=== PATIENT | female | born 1985 | race Caucasian/White ===

== ENCOUNTER 2020-10-09 13:06 | Outpatient (REF) | payer OTHER, SELFPAY ==
[2020-10-09 16:30] LABS: Hematocrit 41.2 % (37-47); Hemoglobin 13.3 g/dl (12.0-16.0); Mean Corpuscular HGB Conc 32.3 g/dl (31.0-35.0); Mean Corpuscular Hemoglobin 28.2 pg (27.0-33.0); Mean Corpuscular Volume 87.3 fL (80-98); Mean Platelet Volume 9.5 fL (9.4-12.3); Platelet Count 390 X10*3/uL (160-400); Red Blood Count 4.72 X10*6/uL (4.20-5.50); Red Cell Distribution Width 13.3 % (11.0-16.0); White Blood Count 8.6 X10*3/uL (4.8-10.8)
[2020-10-09 16:54] LABS: Alanine Aminotransferase 7 U/L (0-31); Albumin Level 4.4 g/dL (3.5-5.0); Alkaline Phosphatase 76 U/L (39-117); Anion Gap 13 (12-20); Aspartate Amino Transferase 14 U/L (5-31); Bilirubin Total 0.4 mg/dL (0.0-1.0); Blood Urea Nitrogen 12 mg/dL (9-16); Carbon Dioxide 30 mmol/L (22-29); Chloride 99 mmol/L (96-108); Cholesterol 180 mg/dL; Estimated Glomerular Filt Rate > 60; Glucose Fasting 80 mg/dL (60-99); HDL Cholesterol 58 mg/dL; LDL Cholesterol Calculated 91 mg/dl; Sodium 138 mmol/L (135-145); Total Protein 7.5 g/dL (6.5-8.0); Triglycerides 158 mg/dL
[2020-10-09 17:14] LABS: TSH reflex Free T4 2.24 mIU/mL (0.32-4.0); Vitamin D 25-OH Total 44.8 ng/mL (>30)
[2020-10-09 17:31] LABS: Folate 11.4 ng/mL (> or = 4.0); Vitamin B12 < 146 pg/mL (200-900)
== END 2020-10-09 13:07 | disposition home or self-care (01) ==
LOC: HO.HMGCLDS 13:06
PROVIDERS: PCP Internal Medicine; Visit Provider Internal Medicine
DX: Z00.00 Encounter for general adult medical examination without abnormal findings (principal); Z20.828 Contact with and (suspected) exposure to other viral communicable diseases
CPT/HCPCS: 36415; 80053; 80061; 82306; 82607; 82746; 84443; 85027; 88142; C9803; U0003

== ENCOUNTER 2021-02-09 16:34 | Outpatient (REF) | payer OTHER, SELFPAY | END 2021-02-09 16:35 | disposition home or self-care (01) | LOC: HO.LNP 16:34 | PROVIDERS: Visit Provider Hospitalist | DX: J01.90 Acute sinusitis, unspecified (principal); Z20.822 Contact with and (suspected) exposure to COVID-19 | CPT/HCPCS: U0003; U0005 ==

== ENCOUNTER 2021-03-12 08:40 | Outpatient (REF) | payer OTHER, SELFPAY ==
--- NOTE | ~2021-03-12 | XR_ITS ---
EXAMINATION: XR CHEST CLINICAL INFORMATION: Essential hypertension COMPARISON: None TECHNIQUE: 2 views of the chest were obtained. FINDINGS: No significant abnormality is noted involving the heart, lungs, mediastinum, bony thorax or soft tissues. XR/XR chest 2V IMPRESSION: No acute disease.
[2021-03-12 11:48] LABS: Hematocrit 42.2 % (37-47); Hemoglobin 13.2 g/dl (12.0-16.0); Mean Corpuscular HGB Conc 31.3 g/dl (31.0-35.0); Mean Corpuscular Hemoglobin 27.7 pg (27.0-33.0); Mean Corpuscular Volume 88.7 fL (80-98); Mean Platelet Volume 9.4 fL (9.4-12.3); Platelet Count 471 X10*3/uL (160-400); Red Blood Count 4.76 X10*6/uL (4.20-5.50); White Blood Count 7.8 X10*3/uL (4.8-10.8)
[2021-03-12 12:00] LABS: Alanine Aminotransferase 7 U/L (0-31); Albumin Level 4.5 g/dL (3.5-5.0); Alkaline Phosphatase 74 U/L (39-117); Anion Gap 15 (12-20); Aspartate Amino Transferase 11 U/L (5-31); Bilirubin Total 0.4 mg/dL (0.0-1.0); Blood Urea Nitrogen 14 mg/dL (9-16); Calcium 9.9 mg/dL (8.4-10.2); Carbon Dioxide 27 mmol/L (22-29); Chloride 102 mmol/L (96-108); Cholesterol 205 mg/dL; Estimated Glomerular Filt Rate > 60; Glucose Fasting 104 mg/dL (60-99); HDL Cholesterol 55 mg/dL; LDL Cholesterol Calculated 119 mg/dl; Potassium 4.1 mmol/L (3.3-5.1); Sodium 140 mmol/L (135-145); Total Protein 7.6 g/dL (6.5-8.0); Triglycerides 156 mg/dL
[2021-03-12 12:21] LABS: TSH reflex Free T4 2.59 uIU/mL (0.32-4.0); Vitamin D 25-OH Total 36.2 ng/mL (>30)
[2021-03-12 13:50] LABS: Folate 9.1 ng/mL (> or = 4.0); Vitamin B12 147 pg/mL (200-900)
== END 2021-03-12 08:41 | disposition home or self-care (01) ==
LOC: HO.HMGCX 08:40
PROVIDERS: PCP Internal Medicine; Visit Provider Internal Medicine
DX: I10 Essential (primary) hypertension (principal); J01.90 Acute sinusitis, unspecified; J45.909 Unspecified asthma, uncomplicated; E53.8 Deficiency of other specified B group vitamins
CPT/HCPCS: 36415; 71046; 80053; 80061; 82306; 82607; 82746; 84443; 85027

== ENCOUNTER 2021-03-26 10:26 | Outpatient (REF) | payer OTHER, SELFPAY ==
--- NOTE | ~2021-03-26 | US_ITS ---
EXAMINATION: US ABDOMEN COMPLETE CLINICAL INFORMATION: Unspecified abdominal pain. COMPARISON: CT abdomen without intravenous contrast dated 01/31/2008 TECHNIQUE: Real-time imaging of the abdominal viscera. FINDINGS: PANCREAS: Normal. ABDOMINAL AORTA: The proximal, mid, and distal segments are normal in caliber. INFERIOR VENA CAVA: Visualized portions are normal. LIVER: Normal. The liver is normal in size. The liver contour is normal. Parenchymal echogenicity is normal. No focal hepatic lesion. There is no intrahepatic biliary duct dilatation seen. GALLBLADDER: Normal. The gallbladder is physiologically distended without evidence of stones, sludge, polyps, wall thickening or pericholecystic fluid. COMMON BILE DUCT: Normal in caliber measuring 0.43 cm in diameter. RIGHT KIDNEY: Right midpole stone measuring 0.4 cm. No hydronephrosis or focal parenchymal lesions. The kidney measures 11.0 cm in maximum dimension. LEFT KIDNEY: Left midpole stone measuring 0.2 cm. No hydronephrosis or focal parenchymal lesions. The kidney measures 12.0 cm in maximum dimension. SPLEEN: Normal. The spleen measures 11.3 cm in maximum dimension. FREE FLUID: None. US/US abdomen complete IMPRESSION: Bilateral renal stones measuring 0.4 cm on the right and 0.2 cm on the left. No hydronephrosis. Otherwise unremarkable examination.
== END 2021-03-26 10:27 | disposition home or self-care (01) ==
LOC: HO.HMGCX 10:26
PROVIDERS: PCP Internal Medicine; Visit Provider Internal Medicine
DX: R10.9 Unspecified abdominal pain (principal)
CPT/HCPCS: 76700

== ENCOUNTER 2023-08-24 09:32 | Outpatient (REF) | payer OTHER, SELFPAY ==
[2023-08-24 11:09] LABS: MANUAL DIFF FLAG NO
[2023-08-24 11:29] LABS: Basophils Absolute Auto 0.1 X10*3/uL (0.0-0.2); Basophils Percent Auto 0.7 % (0-2); Eosinophils Absolute Auto 0.1 X10*3/uL (0.0-0.4); Eosinophils Percent Auto 1.4 % (0-4); Hemoglobin 13.4 g/dl (12.0-16.0); Imm Gran Abs Auto 0.02 X10*3/uL (0.00-0.03); Imm Gran Pct Auto 0.2 % (0.0-0.4); Lymphocytes Absolute Auto 2.6 X10*3/uL (1.2-4.9); Lymphocytes Percent Auto 30.3 % (20-40); Mean Corpuscular HGB Conc 31.9 g/dl (31.0-35.0); Mean Corpuscular Hemoglobin 28.9 pg (27.0-33.0); Mean Corpuscular Volume 90.7 fL (80.0-98.0); Mean Platelet Volume 9.5 fL (9.4-12.3); Monocytes Absolute Auto 0.5 X10*3/uL (0.1-1.2); Monocytes Percent Auto 5.7 % (2-11); Neutrophils Absolute Auto 5.2 x10*3/uL (2.0-8.3); Neutrophils Percent Auto 61.7 % (45-73); Platelet Count 412 X10*3/uL (160-400); Red Blood Count 4.63 X10*6/uL (4.20-5.50); Red Cell Distribution Width 12.9 % (11.0-16.0); White Blood Count 8.5 X10*3/uL (4.8-10.8)
[2023-08-24 11:57] LABS: Alanine Aminotransferase 10 U/L (0-31); Albumin Level 4.3 g/dL (3.5-5.0); Alkaline Phosphatase 59 U/L (39-117); Anion Gap 15 (12-20); Aspartate Amino Transferase 14 U/L (5-31); Bilirubin Total 0.4 mg/dL (0.0-1.0); Blood Urea Nitrogen 15 mg/dL (9-16); Calcium 9.3 mg/dL (8.4-10.2); Carbon Dioxide 26 mmol/L (22-29); Chloride 103 mmol/L (96-108); Cholesterol 190 mg/dL (<200); Estimated Glomerular Filt Rate > 60; Glucose Fasting 88 mg/dL (60-99); HDL Cholesterol 59 mg/dL (>40); LDL Cholesterol Calculated 115 mg/dL (<100); Potassium 3.9 mmol/L (3.3-5.1); Sodium 140 mmol/L (135-145); Total Protein 7.6 g/dL (6.5-8.0); Triglycerides 80 mg/dL (<150)
[2023-08-24 12:12] LABS: TSH reflex Free T4 1.72 uIU/mL (0.32-4.0)
[2023-08-24 12:25] LABS: Folate > 20.0 ng/mL (> or = 4.0); Vitamin B12 363 pg/mL (200-900)
== END 2023-08-24 09:33 | disposition home or self-care (01) ==
LOC: HO.HMGCLDS 09:32
PROVIDERS: PCP Internal Medicine; Visit Provider Internal Medicine
DX: Z00.00 Encounter for general adult medical examination without abnormal findings (principal); E53.8 Deficiency of other specified B group vitamins; I10 Essential (primary) hypertension
CPT/HCPCS: 36415; 80053; 80061; 82607; 82746; 84443; 85025

== ENCOUNTER 2023-09-12 13:16 | Outpatient (AMB) | payer OTHER, SELFPAY ==
[2023-09-12 13:19] VITALS: BP 132/80; PULSE 76; O2SAT 99; BMI 25.3
--- NOTE | 2023-09-12 13:19 | A.OFFPC_ITS ---
Vital Signs 09/12/23 13:19 Height 5 ft 1.75 in Weight 137 lb BMI 25.3 BP 132/80 Blood Pressure Location Lt brachial Position Sitting Pulse 76 Pulse Source Pulse Oximeter Pulse Oximetry (%) 99 Oxygen Delivery Method Room Air Intake Visit Reasons: PE Intake Note: Pt is here today for PE. Allergies methocarbamol [From Robaxin] Allergy (Unknown, Verified 09/12/23 13:20) Hives Medication List - Last Reconciled 09/12/23 by Nahed Galicia MD albuterol sulfate 90 mcg/actuation 2 puffs inhalation Q4-6H PRN cyanocobalamin (vitamin B-12) 1,000 mcg PO DAILY fluticasone propionate 50 mcg/actuation inhalation fluticasone propionate 110 mcg/actuation (Flovent HFA) 1 puff PO BID lisinopril 10 mg PO DAILY lorazepam 0.5 mg PO BEDTIME PRN norgestimate-ethinyl estradiol 0.18/0.215/0.25 mg-25 mcg 1 tab PO DAILY triamcinolone acetonide 0.1% 1 appl topical BID Tobacco use date assessed: 09/12/23 Dental Screening Dental Screen Date: 09/12/23 Did you have a dental visit in the last 12 months?: Yes Did you have a dental problem in the last 6 months where you did not have access to dental care?: No Was dental information given to patient?: Patient has dentist HPI PE HPI Details Pt presents for PE. PFSH Medical History Anxiety and depression Seasonal allergies Anxiety Abdominal pain Vitamin B 12 deficiency Annual physical exam Nephrolithiasis Eczema PTSD (post-traumatic stress disorder) Migraines Asthma Heart murmur Surgical History History of breast augmentation Family History Father Heart murmur Substance use disorder Mother Crohn's disease Fibromyalgia Diabetes mellitus Multiple sclerosis Mental health disorder Son No problems noted. Daughter No problems noted. 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 1. Little interest or pleasure in doing things: more than half the days 2. Feeling down, depressed, or hopeless: more than half the days 3. Trouble falling or staying asleep, or sleeping too much: nearly every day 4. Feeling tired or having little energy: nearly every day 5. Poor appetite or overeating: more than half the days 6. Feeling bad about yourself - or that you are a failure or have let yourself or your family down: nearly every day 7. Trouble concentrating on things, such as reading the newspaper or watching television: more than half the days 8. Moving or speaking so slowly that other people could have noticed. Or the opposite - being so fidgety or restless that you have been moving around a lot more than usual: nearly every day 9. Thoughts that you would be better off or of hurting yourself in some way: several days Total score: 21 Depression Screening Interpretation: Positive Depression Screening Done: Yes Source: Developed by Drs. Michael Morton, Gwendolyn العلي, Emanuel Ochoa and colleagues, with an educational andrez from [employer]. Thrive Questionnaire Date Thrive assessed: 09/12/23 I am a: Patient What is your living situation today?: I have a place to live, but I am worried about losing it in the future Within the past 12 months, did the food you bought not last and you didn't have the money to get more?: Sometimes True Within the past 12 months, did you worry whether your food would run out before you got money to buy more?: Often true Do you have trouble paying for medicines?: No Do you have trouble getting transportation to medical appointments?: No Do you have trouble paying your heating and electricity bill?: Yes Do you have trouble taking care of your child, family member or friend?: No Do you have trouble with day-to-day activities such as bathing, preparing meals, shopping, managing finances, etc.?: Yes Are you currently unemployed and looking for a job?: No Are you interested in more education?: Yes AMILCAR-7 AMB Questionnaire AMILCAR-7 Date AMILCAR - 7 assessed: 09/12/23 Feeling nervous, anxious, or on edge: 3 = Nearly every day Not being able to stop or control worryin = Nearly every day Worrying too much about different things: 3 = Nearly every day Trouble relaxin = More than half the days Being so restless that it is hard to sit still: 3 = Nearly every day Becoming easily annoyed or irritable: 2 = More than half the days Feeling afraid as if something awful might happen: 3 = Nearly every day Total AMILCAR-7 score (0-4 normal; 5-9 mild; 10-14 moderate; 15-21 severe): 19 Source: Developed by Drs. Michael Morton, Gwendolyn العلي, Emanuel Ochoa and colleagues, with an educational andrez from [employer]. Review of Systems Const All systems reviewed & are unremarkable except as noted in HPI and below Eyes Reports no additional complaints ENT Reports no additional complaints Card Reports no additional complaints Resp Reports no additional complaints GI Reports no additional complaints Reports no additional complaints Musc Reports no additional complaints Physical exam (Primary Care) Vital Signs: Last Vital Signs Pulse 76 09/12/23 13:19 BP 132/80 09/12/23 13:19 Pulse Ox 99 09/12/23 13:19 Oxygen Delivery Method Room Air 09/12/23 13:19 BMI result Body Mass Index 25.3 Tobacco/Smoking Status: Tobacco use Status Tobacco use date assessed 09/12/23 09/12/23 13:26 Patient Tobacco Use Status Never used Tobacco 09/12/23 13:26 e-Cigarette/Vaping Use Never Used 09/12/23 13:26 PHQ-9: PHQ-9 Score PHQ-9: Total score 21 09/12/23 14:36 Depression Screening Interpretation: Positive Thrive Assessment: Date of Thrive Assessment Date Thrive assessed 09/12/23 09/12/23 14:36 Const General: no acute distress HENMT Head: Yes normal to inspection Face and sinus: Yes normal facial exam Mouth: Normal oral and palatal mucosa present Throat: Yes posterior oropharynx normal Eyes General: appearance normal, both eyes and all related structures Neck Neck: Yes no lymphadenopathy and Yes supple Resp Effort & Inspection: normal respiratory effort Auscultation: clear to auscultation bilaterally Cardio Rhythm: regular rhythm Heart sounds: S1 normal heart sound present and S2 normal heart sound present GI Inspection: Yes normal to inspection Palpation (GI): Soft to palpation Percussion: Yes normal to percussion Auscultation: normal bowel sounds External Female Exam: normal external appearance Speculum Exam - Vagina: normal appearance of the vagina Speculum Exam - Cervix: normal appearance of the cervix Bimanual exam- vagina & uterus: normal bimanual exam Assessment and Plan Assessment & Plan (1) Anxiety and depression: Comment: Patient declined medications and counseling Code(s): F41.9 - Anxiety disorder, unspecified; F32.9 - Major depressive disorder, single episode, unspecified Plan: Patient declined referral for counseling or psychiatrist. She is self managing her anxiety and depression with regular exercise and meditations (2) Asthma: Code(s): J45.909 - Unspecified asthma, uncomplicated Plan: Patient was advised to restart Flovent twice a day and use albuterol as needed only. Return in 4 months (3) HTN (hypertension): Code(s): I10 - Essential (primary) hypertension Qualifiers: Hypertension type: essential hypertension Qualified Code(s): I10 - Essential (primary) hypertension Plan: Continue lisinopril (4) Annual physical exam: Code(s): Z00.00 - Encounter for general adult medical examination without abnormal findings Plan: Well-balanced diet and regular physical activity discussed with the patient. Pap smear was done today (5) Vitamin B 12 deficiency: Code(s): E53.8 - Deficiency of other specified B group vitamins Plan: Continue B12 supplement Orders: Orders Pap Smear Today Z00.00 - Encounter for general adult medical examination without abnormal findings Coding Level of Care Code Est Pt Prev Care 18-39y(06325) Diagnoses Anxiety and depression F41.9; F32.9 Asthma J45.909 Essential hypertension I10 Hypertension type: essential hypertension Annual physical exam Z00.00 Vitamin B 12 deficiency E53.8
== END 2023-09-12 14:49 | disposition home or self-care (01) ==
PROVIDERS: PCP Internal Medicine; Visit Provider Internal Medicine
DX: Z00.00 Encounter for general adult medical examination without abnormal findings (principal); F41.9 Anxiety disorder, unspecified; J45.909 Unspecified asthma, uncomplicated; I10 Essential (primary) hypertension; F32.9 Major depressive disorder, single episode, unspecified; E53.8 Deficiency of other specified B group vitamins
CPT/HCPCS: 99395

== ENCOUNTER 2023-09-12 14:57 | Outpatient (REF) | payer OTHER, SELFPAY ==
[2023-09-15 20:34] LABS: HPV mRNA E6/E7 Not Detected (Not Detected)
== END 2023-09-12 14:58 | disposition home or self-care (01) ==
LOC: HO.LNP 14:57
PROVIDERS: Visit Provider Internal Medicine
DX: Z12.4 Encounter for screening for malignant neoplasm of cervix (principal); Z11.51 Encounter for screening for human papillomavirus (HPV)
CPT/HCPCS: 87624; 88142

== ENCOUNTER 2024-01-18 12:59 | Outpatient (REF) | payer OTHER, SELFPAY ==
[2024-01-18 16:27] LABS: MANUAL DIFF FLAG NO
[2024-01-18 16:29] LABS: Basophils Absolute Auto 0.1 X10*3/uL (0.0-0.2); Basophils Percent Auto 0.8 % (0-2); Eosinophils Absolute Auto 0.1 X10*3/uL (0.0-0.4); Eosinophils Percent Auto 1.6 % (0-4); Hematocrit 39.1 % (37.0-47.0); Hemoglobin 12.8 g/dl (12.0-16.0); Imm Gran Abs Auto 0.02 X10*3/uL (0.00-0.03); Imm Gran Pct Auto 0.3 % (0.0-0.4); Lymphocytes Absolute Auto 2.2 X10*3/uL (1.2-4.9); Lymphocytes Percent Auto 30.3 % (20-40); Mean Corpuscular HGB Conc 32.7 g/dl (31.0-35.0); Mean Corpuscular Volume 88.7 fL (80.0-98.0); Mean Platelet Volume 9.5 fL (9.4-12.3); Monocytes Absolute Auto 0.5 X10*3/uL (0.1-1.2); Monocytes Percent Auto 6.5 % (2-11); Neutrophils Absolute Auto 4.4 x10*3/uL (2.0-8.3); Neutrophils Percent Auto 60.5 % (45-73); Platelet Count 404 X10*3/uL (160-400); Red Blood Count 4.41 X10*6/uL (4.20-5.50); Red Cell Distribution Width 12.7 % (11.0-16.0); White Blood Count 7.3 X10*3/uL (4.8-10.8)
[2024-01-18 16:53] LABS: Appearance Urine Clear; Color Urine Yellow; Glucose Urine UA Negative (Negative); Leukocyte Esterase Urine Negative (Negative); Nitrite Urine Negative (Negative); Specific Gravity - Urine <= 1.005 (1.005-1.025); Urine Blood Negative (Negative); Urine Ketones Negative (Negative); Urine Protein Negative (Neg-Trace)
[2024-01-18 16:55] LABS: Alanine Aminotransferase 16 U/L (0-31); Albumin Level 4.1 g/dL (3.5-5.0); Alkaline Phosphatase 63 U/L (39-117); Anion Gap 10 (12-20); Aspartate Amino Transferase 15 U/L (5-31); Bilirubin Total 0.4 mg/dL (0.0-1.0); Blood Urea Nitrogen 11 mg/dL (9-16); Calcium 9.4 mg/dL (8.4-10.2); Carbon Dioxide 28 mmol/L (22-29); Chloride 105 mmol/L (96-108); Cholesterol 163 mg/dL (<200); Estimated Glomerular Filt Rate > 60; Glucose Fasting 88 mg/dL (60-99); HDL Cholesterol 46 mg/dL (>40); LDL Cholesterol Calculated 66 mg/dL (<100); Sodium 139 mmol/L (135-145); Total Protein 7.2 g/dL (6.5-8.0); Triglycerides 255 mg/dL (<150)
[2024-01-18 16:56] LABS: Bacteria Urine None Seen (None Seen); Hyaline Casts Urine 0-2 /LPF (0-2); RBC Urine 0-2 /HPF (0-2); Squamous Epithelial Cell Urine 0-2 /HPF (0-2); WBC Urine 0-5 /HPF (0-5)
[2024-01-18 17:13] LABS: Folate > 20.0 ng/mL (> or = 4.0); Vitamin B12 572 pg/mL (200-900)
[2024-01-18 18:08] LABS: TSH reflex Free T4 1.12 uIU/mL (0.32-4.0)
== END 2024-01-18 13:00 | disposition home or self-care (01) ==
LOC: HO.HMGCLDS 12:59
PROVIDERS: PCP Internal Medicine; Visit Provider Internal Medicine
DX: Z00.00 Encounter for general adult medical examination without abnormal findings (principal); E53.8 Deficiency of other specified B group vitamins; I10 Essential (primary) hypertension
CPT/HCPCS: 36415; 80053; 80061; 81001; 82607; 82746; 84443; 85025

== ENCOUNTER 2024-10-10 09:50 | Outpatient (AMB) | payer OTHER, SELFPAY ==
--- NOTE | 2024-10-10 09:57 | MHC.PC.OV ---
Vital Signs 10/10/24 09:59 Height 5 ft 1 in Weight 133 lb BMI 25.1 BP 140/90 H Blood Pressure Location Lt brachial Position Sitting Pulse 81 Pulse Source Pulse Oximeter Pulse Oximetry (%) 98 Oxygen Delivery Method Room Air Intake Visit Reasons: Post COVID symptoms, mental health concerns Allergies methocarbamol [From Robaxin] Allergy (Unknown, Verified 10/10/24 10:00) Hives Medication List - Last Reconciled 10/10/24 by Nahed Galicia MD albuterol sulfate 90 mcg/actuation 2 puffs inhalation Q4-6H PRN cyanocobalamin (vitamin B-12) 1,000 mcg PO DAILY escitalopram oxalate (Lexapro) 10 mg PO DAILY fluticasone propionate 110 mcg/actuation (Flovent HFA) 1 puff PO BID lisinopril 10 mg PO DAILY mometasone 100 mcg/actuation (Asmanex HFA) 2 puffs inhalation BID norgestimate-ethinyl estradiol 0.18/0.215/0.25 mg-25 mcg (Aqs-Ey-Vpnebn) 1 tab PO DAILY triamcinolone acetonide 0.1% 1 appl topical BID Tobacco use date assessed: 10/10/24 Dental Screening Dental Screen Date: 10/10/24 Did you have a dental visit in the last 12 months?: Yes Did you have a dental problem in the last 6 months where you did not have access to dental care?: Yes Was dental information given to patient?: Patient has dentist HPI Post COVID symptoms, mental health concerns HPI Details Pt presents for f/u anxiety, panic attacks, depression getting worse over the last few weeks. Patient got in August and her lives in [place] and she is planning to move permanently to [place]. Patient has been under lot of stress related to her grandparents and her mother health traveling back and forth to [place]. She used to see a counselor but not recently. Patient reports insomnia but denies change in appetite or suicide ideation. She had tried multiple SSRIs in the past but not Lexapro. Asthma has been controlled on Asmanex and patient continues to take lisinopril for hypertension. [facility] Medical History (Updated 10/10/24 @ 14:52 by Nahed Galicia MD) Anxiety and depression Seasonal allergies Anxiety Abdominal pain Vitamin B 12 deficiency Annual physical exam Nephrolithiasis Eczema PTSD (post-traumatic stress disorder) Migraines Asthma Heart murmur Surgical History History of breast augmentation Family History Father Heart murmur Substance use disorder Mother Crohn's disease Fibromyalgia Diabetes mellitus Multiple sclerosis Mental health disorder Son No problems noted. Daughter No problems noted. Brother Mental health disorder Social History Household Members Other:: single, helps mother with [place] in [place] Housing: House Alcohol intake: current Alcohol intake frequency: a few times a month Patient Tobacco Use Status: Never used Tobacco e-Cigarette/Vaping Use: Never Used Current occupational status: employed Cognitive needs: No Hearing needs: No Vision needs: Yes Questionnaire PHQ-9 Over the last 2 weeks, how often have you been bothered by any of the following problems? 1. Little interest or pleasure in doing things: nearly every day 2. Feeling down, depressed, or hopeless: more than half the days 3. Trouble falling or staying asleep, or sleeping too much: more than half the days 4. Feeling tired or having little energy: nearly every day 5. Poor appetite or overeating: nearly every day 6. Feeling bad about yourself - or that you are a failure or have let yourself or your family down: nearly every day 7. Trouble concentrating on things, such as reading the newspaper or watching television: several days 8. Moving or speaking so slowly that other people could have noticed. Or the opposite - being so fidgety or restless that you have been moving around a lot more than usual: more than half the days 9. Thoughts that you would be better off or of hurting yourself in some way: several days Total score: 20 Depression Screening Interpretation: Positive (Lexapro will be started the patient will schedule appointment with counselor) Depression Screening Follow-up: Existing condition, In treatment and New Medication prescribed Depression Screening Done: Yes 70566 - PHQ-9 Billing: Yes Source: Developed by Drs. Michael Morton, Gwendolyn العلي, Emanuel Ochoa and colleagues, with an educational andrez from [employer]. Thrive Questionnaire Date Thrive assessed: 10/10/24 I am a: Patient What is your living situation today?: I have a place to live, but I am worried about losing it in the future Within the past 12 months, did the food you bought not last and you didn't have the money to get more?: Often true Within the past 12 months, did you worry whether your food would run out before you got money to buy more?: Sometimes True Do you have trouble paying for medicines?: Yes Do you have trouble getting transportation to medical appointments?: I choose not to answer this question Do you have trouble paying your heating and electricity bill?: Yes Do you have trouble taking care of your child, family member or friend?: Yes Do you have trouble with day-to-day activities such as bathing, preparing meals, shopping, managing finances, etc.?: Yes Are you currently unemployed and looking for a job?: No Are you interested in more education?: Yes Please select the resources that you would like help with: Food, Paying for medicine and Utilities Currently or been in a relationship where the following occur: I choose not to answer THRIVE Score: 4 AUDIT C Alcohol Use Questionnaire (AUDIT-C) 1. How often do you have a drink containing alcohol?: 2-3 times a week 2. How many drinks containing alcohol do you have on a typical day when you are drinking?: 1 or 2 3. How often do you have six or more drinks on one occasion?: Monthly Total Score: 5 Score Reviewed/Action Taken: Yes AMILCAR-7 AMB Questionnaire AMILCAR-7 Date AMILCAR - 7 assessed: 10/10/24 Feeling nervous, anxious, or on edge: 3 = Nearly every day Not being able to stop or control worryin = Nearly every day Worrying too much about different things: 3 = Nearly every day Trouble relaxin = Nearly every day Being so restless that it is hard to sit still: 3 = Nearly every day Becoming easily annoyed or irritable: 3 = Nearly every day Feeling afraid as if something awful might happen: 3 = Nearly every day Total AMILCAR-7 score (0-4 normal; 5-9 mild; 10-14 moderate; 15-21 severe): 21 Source: Developed by Drs. Michael Morton, Gwendolyn Emanuel Daniels and colleagues, with an educational andrez from [employer]. AMILCAR-7 Assessment Billing AMILCAR-7 Assessment Tool: AMILCAR-7 Assessment 99929 Review of Systems Const All systems reviewed & are unremarkable except as noted in HPI and below Eyes Reports no additional complaints ENT Reports no additional complaints Card Reports no additional complaints Resp Reports no additional complaints GI Reports no additional complaints Reports no additional complaints Musc Reports no additional complaints Physical exam (Primary Care) Vital Signs: Last Vital Signs Pulse 81 10/10/24 09:59 BP 140/90 H 10/10/24 09:59 Pulse Ox 98 10/10/24 09:59 Oxygen Delivery Method Room Air 10/10/24 09:59 BMI result Body Mass Index 25.1 Tobacco/Smoking Status: Tobacco use Status Tobacco use date assessed 10/10/24 10/10/24 09:59 Patient Tobacco Use Status Never used Tobacco 10/10/24 09:59 e-Cigarette/Vaping Use Never Used 10/10/24 09:59 PHQ-9: PHQ-9 Score PHQ-9: Total score 20 10/10/24 10:23 Depression Screening Interpretation: Positive (Lexapro will be started the patient will schedule appointment with counselor) Depression Screening Follow-up: Existing condition, In treatment and New Medication prescribed Thrive Assessment: Date of Thrive Assessment Date Thrive assessed 10/10/24 10/10/24 09:59 Currently or been in a relationship where the following occur: I choose not to answer HENMT Head: Yes normal to inspection Throat: Yes posterior oropharynx normal Neck Neck: Yes supple Resp Effort & Inspection: normal respiratory effort Auscultation: clear to auscultation bilaterally Cardio Rhythm: regular rhythm Heart sounds: S1 normal heart sound present and S2 normal heart sound present GI Inspection: Yes normal to inspection Palpation (GI): Soft to palpation Percussion: Yes normal to percussion Coding Level of Care Code Est Pt Level 4 (34059) Diagnoses Anxiety and depression F41.9; F32.9 Asthma J45.909 Essential hypertension I10 Hypertension type: essential hypertension Additional Codes AMILCAR-7 Assessment Billing - AMILCAR-7 Assessment Tool: AMILCAR-7 Assessment 99106 ([id number]) PHQ-9 - 40112 - PHQ-9 Billing: Yes ([id number]) Assessment & Plan Assessment & Plan (1) Anxiety and depression: Comment: For many years, side effects from multiple SSRI, established with a counselor Code(s): F41.9 - Anxiety disorder, unspecified; F32.9 - Major depressive disorder, single episode, unspecified Category: Medical Plan: Stress management discussed with the patient. Lexapro 10 mg will be started. Follow-up in 6 weeks to 2 months. Patient will schedule an appointment with a counselor (2) Asthma: Code(s): J45.909 - Unspecified asthma, uncomplicated Category: Medical Plan: Controlled on Asmanex (3) HTN (hypertension): Code(s): I10 - Essential (primary) hypertension Category: Medical Qualifiers: Hypertension type: essential hypertension Qualified Code(s): I10 - Essential (primary) hypertension Plan: Increase lisinopril to 20 mg a day, follow-up in 2 months Medications: New escitalopram oxalate (Lexapro) 10 mg PO DAILY 90 tabs 1RF Changed From lisinopril 10 mg PO DAILY 90 tabs 3RF To lisinopril 10 mg PO BID 180 tabs 3RF Refilled lisinopril 10 mg PO DAILY 90 tabs 3RF norgestimate-ethinyl estradiol 0.18/0.215/0.25 mg-25 mcg (Ujy-Tq-Xesliy) 1 tab PO DAILY 84 tabs 2RF Z30.9 - Encounter for contraceptive management, unspecified
[2024-10-10 09:59] VITALS: BP 140/90; PULSE 81; O2SAT 98; BMI 25.1
--- OUTSIDE RECORDS SUMMARY | 2024-10-16 17:19 | XMS_ITS | Continuity of Care Document ---
Author Organization [facility] er Address [address] [place] [address] Phone Care Team Providers Care Key Account Director Name Role Phone Dejuan OWEN Nate Unavailable Unavailable Allergies, Adverse Reactions, Alerts Substance Reaction Status Criticality methocarbamol HivesHives Active No Information coconut HivesHivesthroat swelling Active No Information Procedures Procedure Date Intraoral - Periapical First Film Bitewing - Single Radiographic Image Aug Limited Oral Evaluation - Problem Focuse d Advance Directives Directive Yes / No Effective Date File Name Other Directive No N/A N/A WARNING:The information contained in this section is historical and is provided for information only and does not constitute a legal document or any assurance that the information is still accurate. Please verify the information with the jc of the legal document before using it for clinical purposes. Encounters Encounter Description Practice Location Reason(s) For Visit Diagnoses Date Provider Providers Copied on Encounter [facility], [address] [place] [address], [id number], tel:[phone] [place] No Information Katiezahida [facility]. [address] [place], [address], [place]. tel:[phone] [facility], [address] [place] [address], [place], [id number], [place] tel:[phone] [facility] Encounter for dental exam and cleaning w abnormal findings Dejuan [facility]. [address] [place], [address], [place]. tel:[phone] Referring Provider: Nate Zaidi, [address] [place], [address]. tel:[phone] Family History Family Member Type Diagnosis Age At Onset Father Problem Hypertension Paternal grandfather Problem Diabetes mellitus Mother Problem unspecified Paternal grandfather Problem Hypertension Paternal grandmother Problem Diabetes mellitus Paternal grandmother Problem Hypertension Mother Problem Diabetes mellitus Brother Problem Hypertension Payers Payer name Insurance type Covered green party ID Izzy edwards(sDallas [facility] 17 [id number] Social History Type Description Quantity Date Captured Comments Alcohol Use Details Caffeine Use Details 1-2 cups per day Tobacco Use Status No Information Smoking Status Former smoker Non-Smoking Tobacco Use Details : No Details Available : No Details Available Sex Female Sexual Orientation Straight or heterosexual Gender Identity Female Chief Complaint And Reason For Visit No Information Reason For Referral Reason For Referral No Information Plan Of Treatment Date Type Action Status Goal PRAPARE. Due on due Goal H & P. Due on du e Goal Depression screening. Due on due Goal Pap/HPV testing. Due on due Goal Pre-Diabetes Screening. Due on due Goal Td vaccine. Due on due Goal Hepatitis C screening. Due o n due Goal Influenza vaccine. Due on due Goal Tdap. Due on due History Of Present Illness Encounter Date Complaint History Of Prese nt Illness No Information Functional Status Date Functional Assessmen t No Information Instructions Date Instruction Additional Infor mation No Information Assessments Type Assessment Date No Information Patient Care Teams Name Effective Dates (start - stop) Status Members No Information
== END 2024-10-10 10:49 | disposition home or self-care (01) ==
PROVIDERS: PCP Internal Medicine; Visit Provider Internal Medicine
DX: F41.9 Anxiety disorder, unspecified (principal); F32.9 Major depressive disorder, single episode, unspecified; J45.909 Unspecified asthma, uncomplicated; I10 Essential (primary) hypertension

== ENCOUNTER → 2024-10-10 09:50 | Outpatient (BNVA) | payer OTHER, SELFPAY | PROVIDERS: PCP Internal Medicine; Visit Provider Internal Medicine | DX: F41.9 Anxiety disorder, unspecified (principal); F32.9 Major depressive disorder, single episode, unspecified; J45.909 Unspecified asthma, uncomplicated; I10 Essential (primary) hypertension | CPT/HCPCS: 96127; 99212 ==

== ENCOUNTER 2025-01-07 12:43 | Outpatient (AMB) | payer OTHER, SELFPAY ==
[2025-01-07 12:51] VITALS: PULSE 76; RESP 20; TEMP 37.1; O2SAT 96; BMI 24.0
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
--- OUTSIDE RECORDS SUMMARY | 2025-01-07 14:49 | XMS_ITS | Clinical Summary ---
Author Organization [facility] [employer] Address [address] [place] [address] Care Team Providers Care Outlet Manager Name Role Phone Pcp, No Primary Care Provider Social History Tobacco Use Types Packs/Day Years Used Date Smoking Tobacco: Never Assessed Comments Unknown Sex and Gender Information Value Date Recorded Sex Assigned at Not on file Legal Sex Female 9:55 AM EST Gender Identity Not on file Sexual Orientation Not on file Plan of Treatment Health Maintenance Due Date Last Done Comments Depression: Screening Annual ly using PHQ-2/9 in Adults 18 yrs or above (or HM Modifier)([facility]) 2005 Hepatitis C Virus Infection in Adolescents and Adults: Screening (or Modifier) ([facility]) 2005 SDWY Screening Reminder: Sera ortega for all adults ([facility]) 2005 Tobacco Smoking Cessation: i n Adults excluding Women: Behavioral and Pharmacotherapy Interventions ([facility]) 2005 DTaP/Tdap/Td Vaccines ([facility]) (1 - Tdap) 2006 Lipid Screening: Once for Wo men aged 20 to 45 yrs ([facility]) 2007 Cervical Cancer Screenin 1-65 yrs of age (or Modifier) 2008 Cervical Cancer Screening: P ap every 3 yrs pts age 21-65 2008 Cervical Cancer: Pap Screeni ng with Modifier timing ([facility]) 2008 Cervical Cancer: hrHPV alone or with cotesting Pap for Pts 30-65yrs screening every 5yrs ([facility]) 2008 Flu Vaccination: Yearly for ages 18mos through 64 years (or Modifier)([facility]) 06/07/2024 COVID-19 Vaccine Screening: Initial Series and Booster Status ([facility]) (2023- season) 2024 Zoster/Shingles Vaccine Seri es Screening: Adults aged 18+ yrs (or HM Modifiers)([facility]) (1 of 2) 2037 Pneumococcal Vaccination Scr eening: Pts 0-19 & 19-64 yrs of age ([facility]) Aged Out No longer eligible based on patient's age to complete this topic Medical Devices Not on file Insurance [facility] Care Teams Outlet Manager Relationship Specialty Start Date End Date Pcp, Zita PCP - General Family Medicine 12/04/20
== END 2025-01-07 13:51 | disposition home or self-care (01) ==
PROVIDERS: PCP Internal Medicine; Visit Provider Internal Medicine
DX: I10 Essential (primary) hypertension (principal); F41.9 Anxiety disorder, unspecified; F32.9 Major depressive disorder, single episode, unspecified

== ENCOUNTER → 2025-01-07 12:43 | Outpatient (BNVA) | payer OTHER, SELFPAY | PROVIDERS: PCP Internal Medicine; Visit Provider Internal Medicine | DX: I10 Essential (primary) hypertension (principal); F41.9 Anxiety disorder, unspecified; F32.9 Major depressive disorder, single episode, unspecified | CPT/HCPCS: 96127; 99212 ==

== ENCOUNTER 2025-02-19 13:31 | Outpatient (REF) | payer OTHER, SELFPAY ==
[2025-02-19 16:15] LABS: MANUAL DIFF FLAG NO
[2025-02-19 16:27] LABS: Basophils Absolute Auto 0.1 X10*3/uL (0.0-0.2); Eosinophils Absolute Auto 0.1 X10*3/uL (0.0-0.4); Hematocrit 39.2 % (37.0-47.0); Hemoglobin 12.7 g/dl (12.0-16.0); Imm Gran Abs Auto 0.02 X10*3/uL (0.00-0.03); Imm Gran Pct Auto 0.3 % (0.0-0.4); Lymphocytes Absolute Auto 2.7 X10*3/uL (1.2-4.9); Lymphocytes Percent Auto 36.9 % (20-40); Mean Corpuscular HGB Conc 32.4 g/dl (31.0-35.0); Mean Corpuscular Hemoglobin 28.9 pg (27.0-33.0); Mean Corpuscular Volume 89.3 fL (80.0-98.0); Mean Platelet Volume 9.8 fL (9.4-12.3); Monocytes Absolute Auto 0.4 X10*3/uL (0.1-1.2); Monocytes Percent Auto 5.1 % (2-11); Neutrophils Percent Auto 55.7 % (45-73); Platelet Count 326 X10*3/uL (160-400); Red Blood Count 4.39 X10*6/uL (4.20-5.50); White Blood Count 7.2 X10*3/uL (4.8-10.8)
--- OUTSIDE RECORDS SUMMARY | 2025-02-19 16:35 | XMS_ITS | Continuity of Care Document ---
Author Organization 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 [address] [place], [address], [place]. tel:[phone] [facility], [address] [place] [address], [place], [place], [id number], [place] tel:[phone] [facility] Dental Williams Encounter for dental exam and cleaning w abnormal findings Dejuan [facility]. [address] [place], [address], [place]. tel:[phone] Referring Provider: Nate Zaidi, [address] [place], [address]. tel:[phone] Family History Family Member Type Diagnosis Age At Onset Father Problem Hypertension Paternal grandfather Problem Diabetes mellitus Mother Problem unspecified Paternal grandfather Problem Hypertension Paternal grandmother Problem Diabetes mellitus Paternal grandmother Problem Hypertension Mother Problem Diabetes mellitus Brother Problem Hypertension Payers Payer name Insurance type Covered green party ID Izzy edwards([facility] 17 [id number] Social History Type Description Quantity Date Captured [...] Of Treatment Date Type Action Status Goal Tdap. Due on due Goal Influenza vaccine. Due on due Goal Hepatitis C screening. Due o n due Goal Td vaccine. Due on due Goal Pre-Diabetes Screening. Due on due Goal Pap/HPV testing. Due on due Goal Depression screening. Due on due Goal H & P. Due on du e Goal PRAPARE. Due on due History Of Present Illness Encounter Date Complaint History Of Prese nt Illness No Information Functional Status Date Functional Assessmen t No Information Instructions Date Instruction Additional Infor mation No Information Assessments Type Assessment Date No Information Patient Care Teams Name Effective Dates (start - stop) Status Members No Information
--- OUTSIDE RECORDS SUMMARY | 2025-02-19 16:35 | XMS_ITS | Clinical Summary ---
Author Organization [facility] [employer] Address [address] [place] [address] Care Team Providers Care Set O Type Operator Name Role Phone Pcp, No Primary Care Provider [phone] Social History Tobacco Use Types Packs/Day Years [...] Adults 18 yrs or above (or HM Modifier)([facility]) 2005 Hepatitis C Virus Infection in Adolescents and Adults: Screening (or Modifier) ([facility]) 2005 SDWA Screening Reminder: Sera ortega for all adults ([facility]) 2005 Tobacco Smoking Cessation: i n Adults excluding Women: Behavioral and Pharmacotherapy Interventions ([facility]) 2005 DTaP/Tdap/Td Vaccines ([facility]) (1 - Tdap) 2006 Lipid Screening: Once for Wo men aged 20 to 45 yrs ([facility]) 2007 Cervical Cancer Screenin 1-65 yrs of age (or Modifier) 2008 Cervical Cancer Screening: P ap every 3 yrs pts age 21-65 2008 Cervical Cancer: Pap Screeni ng with Modifier timing ([facility]) 2008 Cervical Cancer: hrHPV alone or with cotesting Pap for Pts 30-65yrs screening every 5yrs ([facility]) 2008 Flu Vaccination: Yearly for ages 18mos through 64 years (or Modifier)([facility]) 06/07/2024 COVID-19 Vaccine Screening: Initial Series and Booster Status ([facility]) ( - 2023- season) 2024 Zoster/Shingles Vaccine Seri es Screening: Adults aged 18+ yrs (or HM Modifiers)([facility]) (1 of 2) 2037 Pneumococcal Vaccination Scr eening: Pts 0-19 & 19-49 yrs of age ([facility]) Aged Out No longer eligible based on patient's age to complete this topic Medical Devices Not on file Insurance [facility] [employer] Care Teams Set O Type Operator Relationship Specialty Start Date End Date Pcp, Zita PCP - General Family Medicine 12/04/20
[2025-02-19 18:02] LABS: Alanine Aminotransferase 8 U/L (0-31); Albumin Level 4.4 g/dL (3.5-5.0); Alkaline Phosphatase 61 U/L (39-117); Anion Gap 14 (12-20); Aspartate Amino Transferase 20 U/L (5-31); Bilirubin Total 0.3 mg/dL (0.0-1.0); Blood Urea Nitrogen 13 mg/dL (9-16); Calcium 9.4 mg/dL (8.4-10.2); Carbon Dioxide 24 mmol/L (22-29); Chloride 107 mmol/L (96-108); Cholesterol 186 mg/dL (<200); Estimated Glomerular Filt Rate > 60; Glucose Random 86 mg/dL (60-115); HDL Cholesterol 55 mg/dL (>40); LDL Cholesterol Calculated 108 mg/dL (<100); Potassium 3.7 mmol/L (3.3-5.1); Sodium 141 mmol/L (135-145); TSH reflex Free T4 1.26 uIU/mL (0.32-4.0); Total Protein 7.3 g/dL (6.5-8.0); Triglycerides 115 mg/dL (<150)
== END 2025-02-19 13:32 | disposition home or self-care (01) ==
LOC: HO.HMGCLDS 13:31
PROVIDERS: PCP Internal Medicine; Visit Provider Internal Medicine
DX: Z00.00 Encounter for general adult medical examination without abnormal findings (principal); I10 Essential (primary) hypertension; F41.9 Anxiety disorder, unspecified; F32.9 Major depressive disorder, single episode, unspecified
CPT/HCPCS: 36415; 80053; 80061; 84443; 85025

== ENCOUNTER 2025-04-08 11:34 | Outpatient (AMB) | payer OTHER, SELFPAY ==
[2025-04-08 12:17] VITALS: BP 126/80; PULSE 83; TEMP 36.7; O2SAT 98; BMI 24.1
--- NOTE | 2025-04-08 12:17 | A.OFFPC_ITS ---
Vital Signs 04/08/25 12:17 Height 5 ft 1 in Weight 127 lb 6 oz BMI 24.1 BP 126/80 Blood Pressure Location Lt brachial Position Sitting Pulse 83 Pulse Source Pulse Oximeter Temp 98.1 F Temp Source Oral Pulse Oximetry (%) 98 Oxygen Delivery Method Room Air Intake Visit Reasons: 2 months f/u Allergies methocarbamol [From Robaxin] Allergy (Unknown, Verified 04/08/25 12:19) Hives Medication List - Last Reconciled 04/08/25 by Nahed Galicia MD albuterol sulfate 90 mcg/actuation 2 puffs inhalation Q4-6H PRN cyanocobalamin (vitamin B-12) 1,000 mcg PO DAILY escitalopram oxalate (Lexapro) 20 mg PO DAILY fluticasone propionate 110 mcg/actuation (Flovent HFA) 1 puff PO BID lisinopril 20 mg PO DAILY lorazepam 0.5 mg PO DAILY PRN mometasone 100 mcg/actuation (Asmanex HFA) 2 puffs inhalation BID norgestimate-ethinyl estradiol 0.18/0.215/0.25 mg-0.025 mg (Lsa-Oy-Xyuajz) 1 tab PO DAILY trazodone 50 mg PO BEDTIME PRN triamcinolone acetonide 0.1% 1 appl topical BID Tobacco use date assessed: 01/07/25 Dental Screening Dental Screen Date: 04/08/25 Did you have a dental visit in the last 12 months?: Yes Did you have a dental problem in the last 6 months where you did not have access to dental care?: No Was dental information given to patient?: Patient has dentist HPI 2 months f/u HPI Details Pt presents for f/u HTN, chronic anxiety, chronic asthma, stable on meds. [facility] Medical History Anxiety and depression Seasonal allergies Anxiety Abdominal pain Vitamin B 12 deficiency Annual physical exam Nephrolithiasis Eczema PTSD (post-traumatic stress disorder) Migraines Asthma Heart murmur Surgical History History of breast augmentation Family History Father Heart murmur Substance use disorder Mother Crohn's disease Fibromyalgia Diabetes mellitus Multiple sclerosis Mental health disorder Son No problems noted. Daughter No problems noted. 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 1. Little interest or pleasure in doing things: more than half the days 2. Feeling down, depressed, or hopeless: more than half the days 3. Trouble falling or staying asleep, or sleeping too much: nearly every day 4. Feeling tired or having little energy: nearly every day 5. Poor appetite or overeating: nearly every day 6. Feeling bad about yourself - or that you are a failure or have let yourself or your family down: more than half the days 7. Trouble concentrating on things, such as reading the newspaper or watching television: nearly every day 8. Moving or speaking so slowly that other people could have noticed. Or the opposite - being so fidgety or restless that you have been moving around a lot more than usual: more than half the days 9. Thoughts that you would be better off or of hurting yourself in some way: several days Total score: 21 Depression Screening Interpretation: Positive (Patient will continue counseling and better Lexapro 20 mg a day, ) Depression Screening Follow-up: Existing condition and In treatment Depression Screening Done: Yes 97255 - PHQ-9 Billing: Yes Source: Developed by Drs. Michael Morton, Gwendolyn العلي, Emanuel Ochoa and colleagues, with an educational andrez from [employer]. Thrive Questionnaire Date Thrive assessed: 04/08/25 I am a: Patient What is your living situation today?: I have a place to live, but I am worried about losing it in the future Within the past 12 months, did the food you bought not last and you didn't have the money to get more?: Sometimes True Within the past 12 months, did you worry whether your food would run out before you got money to buy more?: Sometimes True Do you have trouble paying for medicines?: I choose not to answer this question Do you have trouble getting transportation to medical appointments?: No Do you have trouble paying your heating and electricity bill?: I choose not to answer this question Do you have trouble taking care of your child, family member or friend?: No Do you have trouble with day-to-day activities such as bathing, preparing meals, shopping, managing finances, etc.?: Yes Are you currently unemployed and looking for a job?: No Are you interested in more education?: Yes THRIVE Score: 3 AUDIT C Alcohol Use Questionnaire (AUDIT-C) 1. How often do you have a drink containing alcohol?: 2-4 times a month 2. How many drinks containing alcohol do you have on a typical day when you are drinking?: 3 or 4 3. How often do you have six or more drinks on one occasion?: Less than monthly Total Score: 4 AMILCAR-7 AMB Questionnaire AMILCAR-7 Date AMILCAR - 7 assessed: 04/08/25 Feeling nervous, anxious, or on edge: 2 = More than half the days Not being able to stop or control worryin = Nearly every day Worrying too much about different things: 3 = Nearly every day Trouble relaxin = Nearly every day Being so restless that it is hard to sit still: 3 = Nearly every day Becoming easily annoyed or irritable: 1 = Several days Feeling afraid as if something awful might happen: 2 = More than half the days Total AMILCAR-7 score (0-4 normal; 5-9 mild; 10-14 moderate; 15-21 severe): 17 Source: Developed by Drs. Michael Morton, Gwendolyn العلي, Emanuel Ochoa and colleagues, with an educational andrez from [employer]. AMILCAR-7 Assessment Billing AMILCAR-7 Assessment Tool: AMILCAR-7 Assessment 10289 Review of Systems Const All systems reviewed & are unremarkable except as noted in HPI and below Reports no additional complaints Eyes Reports no additional complaints ENT Reports no additional complaints Card Reports no additional complaints Resp Reports no additional complaints GI Reports no additional complaints Physical exam (Primary Care) Vital Signs: Last Vital Signs Temp 98.1 F 04/08/25 12:17 Pulse 83 04/08/25 12:17 BP 126/80 06/02/25 12:17 Pulse Ox 98 04/08/25 12:17 Oxygen Delivery Method Room Air 04/08/25 12:17 BMI result Body Mass Index 24.1 Tobacco/Smoking Status: Tobacco use Status Tobacco use date assessed 01/07/25 04/08/25 12:21 Patient Tobacco Use Status Never used Tobacco 04/08/25 12:21 e-Cigarette/Vaping Use Never Used 04/08/25 12:21 PHQ-9: PHQ-9 Score PHQ-9: Total score 04/08/25 12:21 Depression Screening Interpretation: Positive (Patient will continue counseling and better Lexapro 20 mg a day, ) Depression Screening Follow-up: Existing condition and In treatment Thrive Assessment: Date of Thrive Assessment Date Thrive assessed 04/08/25 04/08/25 12:21 Const General: no acute distress HENMT Head: Yes normal to inspection Ears: hearing grossly normal bilaterally Face and sinus: Yes normal facial exam Eyes General: appearance normal, both eyes and all related structures Neck Neck: Yes no lymphadenopathy and Yes supple Resp Effort & Inspection: normal respiratory effort Auscultation: clear to auscultation bilaterally Cardio Rhythm: regular rhythm Heart sounds: S1 normal heart sound present and S2 normal heart sound present GI Inspection: Yes normal to inspection Palpation (GI): Soft to palpation Percussion: Yes normal to percussion Auscultation: normal bowel sounds Coding Level of Care Code Est Pt Level 4 (19346) Diagnoses Anxiety and depression F41.9; F32.9 Asthma J45.909 Essential hypertension I10 Hypertension type: essential hypertension Additional Codes AMILCAR-7 Assessment Billing - AMILCAR-7 Assessment Tool: AMILCAR-7 Assessment 18323 ([id number]) PHQ-9 - 84459 - PHQ-9 Billing: Yes ([id number]) Assessment & Plan Assessment & Plan (1) Anxiety and depression: Comment: For many years, side effects from multiple SSRI, buspirone not affective, established with a counselor Code(s): F41.9 - Anxiety disorder, unspecified; F32.9 - Major depressive disorder, single episode, unspecified Category: Medical Plan: cont Lexapro (2) Asthma: Code(s): J45.909 - Unspecified asthma, uncomplicated Category: Medical Plan: cont Asmanex (3) HTN (hypertension): Code(s): I10 - Essential (primary) hypertension Category: Medical Qualifiers: Hypertension type: essential hypertension Qualified Code(s): I10 - Esse ntial (primary) hypertension Plan: cont Lisinopril, f/u 3 months
--- OUTSIDE RECORDS SUMMARY | 2025-04-08 12:52 | XMS_ITS | Clinical Summary ---
Author Organization [facility] [employer] [facility] lin Address [address] [place] [address] Care Team Providers Care Manager Business Process Name Role Phone Pcp, No Primary Care Provider [phone] Social History Tobacco Use Types Packs/Day Years [...] Adults 18 yrs or above (or HM Modifier)([facility]) 2005 Hepatitis C Virus Infection in Adolescents and Adults: Screening (or Modifier) ([facility]) 2005 SDMO Screening Reminder: Sera ortega for all adults ([facility]) 2005 Tobacco Smoking Cessation: i n Adults excluding Women: Behavioral and Pharmacotherapy Interventions ([facility]) 2005 DTaP/Tdap/Td Vaccines ([facility]) (1 - Tdap) 2006 Cervical Cancer Screenin 1-65 yrs of age (or Modifier) 2008 Cervical Cancer Screening: P ap every 3 yrs pts age 21-65 2008 Cervical Cancer: Pap Screeni ng with Modifier timing ([facility]) 2008 Cervical Cancer: hrHPV alone or with cotesting Pap for Pts 30-65yrs screening every 5yrs ([facility]) 2008 COVID-19 Vaccine Screening: Initial Series and Booster Status ([facility]) ( - 2023- season) 2024 Flu Vaccination: Yearly for ages 18mos through 64 years (or Modifier)([facility]) 06/07/2025 Zoster/Shingles Vaccine Seri es Screening: Adults aged 18+ yrs (or HM Modifiers)([facility]) (1 of 2) 2037 Pneumococcal Vaccination Scr eening: Pts 0-19 & 19-49 yrs of age ([facility]) Aged Out No longer eligible based on patient's age to complete this topic Medical Devices Not on [place] [address] [place] [address] PLAN Care Teams Manager Business Process Relationship Specialty Start Date End Date Pcp, No PCP - General Family Medicine 12/04/20
== END 2025-04-08 12:56 | disposition home or self-care (01) ==
LOC: HO.HMCC 11:35
PROVIDERS: PCP Internal Medicine; Visit Provider Internal Medicine
DX: F41.9 Anxiety disorder, unspecified (principal); F32.9 Major depressive disorder, single episode, unspecified; J45.909 Unspecified asthma, uncomplicated; I10 Essential (primary) hypertension

== ENCOUNTER → 2025-04-08 11:34 | Outpatient (BNVA) | payer OTHER, SELFPAY | PROVIDERS: PCP Internal Medicine; Visit Provider Internal Medicine | DX: I10 Essential (primary) hypertension (principal); F41.9 Anxiety disorder, unspecified; F32.9 Major depressive disorder, single episode, unspecified; J45.909 Unspecified asthma, uncomplicated | CPT/HCPCS: 96127; 99212 ==

== ENCOUNTER 2025-10-23 10:47 | Outpatient (AMB) | payer OTHER, SELFPAY ==
--- NOTE | 2025-10-23 10:51 | A.OFFPC_ITS ---
Vital Signs 10/23/25 10:53 Height 5 ft 1 in Weight 127 lb BMI 24.0 BP 124/94 H Blood Pressure Location Lt brachial Position Sitting Respiration 16 Pulse 75 Pulse Source Pulse Oximeter Temp 98.5 F Temp Source Oral Pulse Oximetry (%) 99 Oxygen Delivery Method Room Air Intake Visit Reasons: PE- Asthma, HTN, Anxiety & Depression Intake Note: Pt is here today for a PE. Pt states that she has cough, stuffy nose, R ear pain. Allergies methocarbamol (From Robaxin) Allergy (Unknown, Verified 10/23/25 11:03) Hives Medication List - Last Reconciled 10/23/25 by Nahed Galicia MD albuterol sulfate 90 mcg/actuation 2 puffs inhalation Q4-6H PRN cyanocobalamin (vitamin B-12) 1,000 mcg PO DAILY escitalopram oxalate (Lexapro) 20 mg PO DAILY fluticasone propionate 110 mcg/actuation (Flovent HFA) 1 puff PO BID lisinopril 20 mg PO DAILY lorazepam 0.5 mg PO DAILY PRN mometasone 100 mcg/actuation (Asmanex HFA) 2 puffs inhalation BID norgestimate-ethinyl estradiol 0.18/0.215/0.25 mg-0.025 mg (Dzr-Ci-Suaaxr) 1 tab PO DAILY trazodone 50 mg PO BEDTIME PRN triamcinolone acetonide 0.1% 1 appl topical BID Tobacco use date assessed: 10/23/25 Dental Screening Dental Screen Date: 04/08/25 HPI PE- Asthma, HTN, Anxiety & Depression HPI Details Pt presents for PE. Asthma has been well controlled on Asmanex. Chronic anxiety and depression are stable on current medications she is established with a counselor. [facility] Medical History Anxiety and depression Seasonal allergies Anxiety Abdominal pain Vitamin B 12 deficiency Annual physical exam Nephrolithiasis Eczema PTSD (post-traumatic stress disorder) Migraines Asthma Heart murmur Surgical History History of breast augmentation Family History Father Heart murmur Substance use disorder Mother Crohn's disease Fibromyalgia Diabetes mellitus Multiple sclerosis Mental health disorder Son No problems noted. Daughter No problems noted. Brother Mental health disorder Social History Household Members Other:: single, helps mother with [place] in [place] Housing: House Alcohol intake: current Alcohol intake frequency: a few times a month Patient Tobacco Use Status: Never used Tobacco e-Cigarette/Vaping Use: Never Used service: No Current occupational status: employed Cognitive needs: No Hearing needs: No Vision needs: Yes Questionnaire Thrive Questionnaire Date Thrive assessed: 12/31/24 I am a: Patient What is your living situation today?: I have a place to live, but I am worried about losing it in the future Within the past 12 months, did the food you bought not last and you didn't have the money to get more?: Sometimes True Within the past 12 months, did you worry whether your food would run out before you got money to buy more?: Sometimes True Do you have trouble paying for medicines?: I choose not to answer this question Do you have trouble getting transportation to medical appointments?: No Do you have trouble paying your heating and electricity bill?: I choose not to answer this question Do you have trouble taking care of your child, family member or friend?: No Do you have trouble with day-to-day activities such as bathing, preparing meals, shopping, managing finances, etc.?: Yes Are you currently unemployed and looking for a job?: No Are you interested in more education?: Yes THRIVE Score: 3 AMILCAR-7 AMB Questionnaire AMILCAR-7 Date AMILCAR - 7 assessed: 04/08/25 Source: Developed by Drs. Michael Morton, Gwendolyn العلي, Emanuel Ochoa and colleagues, with an educational andrez from [employer]. Review of Systems Const All systems reviewed & are unremarkable except as noted in HPI and below Eyes Reports no additional complaints ENT Reports no additional complaints Card Reports no additional complaints Resp Reports no additional complaints GI Reports no additional complaints Reports no additional complaints Physical exam (Primary Care) Vital Signs: Last Vital Signs Temp 98.5 F 10/23/25 10:53 Pulse 75 10/23/25 10:53 Resp 16 10/23/25 10:53 BP 124/94 H 10/23/25 10:53 Pulse Ox 99 10/23/25 10:53 Oxygen Delivery Method Room Air 10/23/25 10:53 BMI result Body Mass Index 24.0 Tobacco/Smoking Status: Tobacco use Status Tobacco use date assessed 10/23/25 10/23/25 11:05 Patient Tobacco Use Status Never used Tobacco 10/23/25 10:52 e-Cigarette/Vaping Use Never Used 10/23/25 10:52 Thrive Assessment: Date of Thrive Assessment Date Thrive assessed 12/31/24 10/23/25 10:52 Const General: no acute distress HENMT Head: Yes normal to inspection Face and sinus: Yes normal facial exam Throat: Yes posterior oropharynx normal Eyes General: appearance normal, both eyes and all related structures Neck Neck: Yes no lymphadenopathy and Yes supple Resp Effort & Inspection: normal respiratory effort Auscultation: clear to auscultation bilaterally Cardio Rhythm: regular rhythm Heart sounds: S1 normal heart sound present and S2 normal heart sound present GI Inspection: Yes normal to inspection Palpation (GI): Soft to palpation Percussion: Yes normal to percussion Auscultation: normal bowel sounds Coding Level of Care Code Est Pt Prev Care 40-64y(40370) Diagnoses Anxiety and depression F41.9; F32.9 Essential hypertension I10 Hypertension type: essential hypertension Annual physical exam Z00.00 Assessment & Plan Assessment & Plan (1) Anxiety and depression: Comment: For many years, side effects from multiple SSRI, buspirone not affective, established with a counselor Code(s): F41.9 - Anxiety disorder, unspecified; F32.9 - Major depressive disorder, single episode, unspecified Category: Medical Plan: Continue Lexapro follow-up with a counselor (2) HTN (hypertension): Code(s): I10 - Essential (primary) hypertension Category: Medical Qualifiers: Hypertension type: essential hypertension Qualified Code(s): I10 - Essential (primary) hypertension Plan: Continue Lisinopril, low-sodium diet increase physical activity discussed with the patient follow-up in 1 month (3) Annual physical exam: Code(s): Z00.00 - Encounter for general adult medical examination without abnormal findings Category: Medical Plan: Well-balanced diet regular physical activity discussed with the patient. She is up-to-date with Pap smear Medications: New doxycycline hyclate 100 mg PO BID 14 tabs 0RF Refilled mometasone 100 mcg/actuation (Asmanex HFA) 2 puffs inhalation BID 13 grams 3RF norgestimate-ethinyl estradiol 0.18/0.215/0.25 mg-0.025 mg (Fyx-Hm-Rjamvu) 1 tab PO DAILY 84 tabs 2RF Z30.9 - Encounter for contraceptive management, unspecified lisinopril 20 mg PO DAILY 90 tabs 3RF albuterol sulfate 90 mcg/actuation 2 puffs inhalation Q4-6H PRN 8.5 ea 6RF for wheezing
[2025-10-23 10:53] VITALS: BP 124/94; PULSE 75; RESP 16; TEMP 36.9; O2SAT 99; BMI 24.0
--- OUTSIDE RECORDS SUMMARY | 2025-10-23 13:57 | XMS_ITS | Clinical Summary ---
Author Organization [email or web address] & [facility] lin Address [address] [facility] [place] [address] Care Team Providers Care National Sales Associate Name Role Phone Pcp, No Primary Care Provider [phone] Social History Tobacco Use Types Packs/Day Years Used Date Smoking Tobacco: Never Assessed Comments Unknown Sex and Gender Information Value Date Recorded Sex Assigned at Not on file Legal Sex Female 9:55 AM EST Gender Identity Not on file Sexual Orientation Not on file Plan of Treatment Not on file Medical Devices Not on file Insurance [facility] Transportation Group PLAN Care Teams National Sales Associate Relationship Specialty Start Date End Date PcpZita PCP - General Family Medicine 12/04/20
== END 2025-10-23 15:57 | disposition home or self-care (01) ==
LOC: HO.HMCC 10:47
PROVIDERS: PCP Internal Medicine; Visit Provider Internal Medicine
DX: Z00.00 Encounter for general adult medical examination without abnormal findings (principal); F41.9 Anxiety disorder, unspecified; F32.9 Major depressive disorder, single episode, unspecified; I10 Essential (primary) hypertension

== ENCOUNTER → 2025-10-23 10:47 | Outpatient (BNVA) | payer OTHER, SELFPAY | PROVIDERS: PCP Internal Medicine; Visit Provider Internal Medicine | DX: Z00.00 Encounter for general adult medical examination without abnormal findings (principal); I10 Essential (primary) hypertension; F32.A Depression, unspecified; J45.909 Unspecified asthma, uncomplicated; F41.9 Anxiety disorder, unspecified; Z30.9 Encounter for contraceptive management, unspecified | CPT/HCPCS: 99211; 99395 ==

== ENCOUNTER 2025-11-06 13:26 | Outpatient (AMB) | payer OTHER, SELFPAY ==
--- NOTE | 2025-11-06 13:27 | MHC.PC.OV ---
Intake Visit Reasons: Telehealth paper work Allergies methocarbamol (From Robaxin) Allergy (Unknown, Verified 11/06/25 13:27) Hives Tobacco use date assessed: 10/23/25 Dental Screening Dental Screen Date: 04/08/25 HPI Telehealth paper work HPI Details This is a telehealth visit to fill out FMLA for intermittent leave due to chronic anxiety depression and bipolar disorder. Patient is established with a therapist and psychiatrist and has been doing well. [facility] Medical History Anxiety and depression Seasonal allergies Anxiety Abdominal pain Vitamin B 12 deficiency Annual physical exam Nephrolithiasis Eczema PTSD (post-traumatic stress disorder) Migraines Asthma Heart murmur Surgical History History of breast augmentation Family History Father Heart murmur Substance use disorder Mother Crohn's disease Fibromyalgia Diabetes mellitus Multiple sclerosis Mental health disorder Son No problems noted. Daughter No problems noted. 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 Michael Morton, Gwendolyn العلي, Emanuel Ochoa and colleagues, with an educational andrez from [employer]. Review of Systems Const All systems reviewed & are unremarkable except as noted in HPI and below Card Reports no additional complaints Resp Reports no additional complaints GI Reports no additional complaints Reports no additional complaints Physical exam (Primary Care) Tobacco/Smoking Status: Tobacco use Status Tobacco use date assessed 10/23/25 11/06/25 13:28 Patient Tobacco Use Status Never used Tobacco 11/06/25 13:28 e-Cigarette/Vaping Use Never Used 11/06/25 13:28 Thrive Assessment: Date of Thrive Assessment Date Thrive assessed 12/31/24 11/06/25 13:28 Telehealth Telehealth Telehealth Platform: Telephone Location of provider rendering services: practice address Location of patient: address on file Patient Identification confirmed using: Name, : Yes Telehealth method: voice only Patient verbally consented to treatment: Yes Patient verbally consented to billing insurance company: Yes Patient informed of any privacy concerns related to visit: Yes Minutes spent on Phone/Video with Pt.: 15 Coding Level of Care Code Est Pt Level 3 (17365) Diagnoses Anxiety and depression F41.9; F32.9 Essential hypertension I10 Hypertension type: essential hypertension Assessment & Plan Assessment & Plan (1) Anxiety and depression: Comment: For many years, side effects from multiple SSRI, buspirone not affective, established with a counselor Code(s): F41.9 - Anxiety disorder, unspecified; F32.9 - Major depressive disorder, single episode, unspecified Category: Medical Plan: Continue current medications, follow-up with a counselor and Psychiatry, [facility] paperwork filled out and faxed (2) HTN (hypertension): Code(s): I10 - Essential (primary) hypertension Category: Medical Qualifiers: Hypertension type: essential hypertension Qualified Code(s): I10 - Essential (primary) hypertension Plan: Continue medications
== END 2025-11-06 14:11 | disposition home or self-care (01) ==
LOC: HO.HMCC 13:26
PROVIDERS: PCP Internal Medicine; Visit Provider Internal Medicine
DX: F41.9 Anxiety disorder, unspecified (principal); F32.9 Major depressive disorder, single episode, unspecified; I10 Essential (primary) hypertension

== ENCOUNTER → 2025-11-06 13:26 | Outpatient (BNVA) | payer OTHER, SELFPAY | PROVIDERS: PCP Internal Medicine; Visit Provider Internal Medicine | DX: Z02.79 Encounter for issue of other medical certificate (principal); F41.9 Anxiety disorder, unspecified; F32.9 Major depressive disorder, single episode, unspecified; I10 Essential (primary) hypertension | CPT/HCPCS: 99212 ==